=== PATIENT | female | born 1975 | race Caucasian/White ===

== ENCOUNTER 2017-01-11 08:28 | Observation (INO) ==
[2017-01-11] MEDS ORDERED: Ketorolac 30 MG/ML VIAL IVP ONE (09:26)
[2017-01-11 09:36] LABS: Bilirubin,Urine Negative (Negative); Blood,Urine Moderate (Negative); Clarity,Urine Cloudy (Clear); Color,Urine Yellow (Yellow); Glucose,Urine (UA) Normal (Normal); Ketones,Urine Negative (Negative); Leukocyte Esterase,Urine Large (Negative); Nitrite,Urine Positive (Negative); PH,Urine 7.5 pH Units (5.0-8.0); Protein,Urine 100 mg/dL (Neg-Trace); Urobilinogen,Urine Normal (Normal)
[2017-01-11 09:38] LABS: Bacteria,Urine Many per hpf (None-Few); Hyaline Casts,Urine None Seen per lpf (None-Few); RBC,Urine 30-50 per hpf (0-3); Squamous Epithelial Cell,Urine Many per lpf (None-Few); WBC,Urine TNTC per hpf (0-3)
[2017-01-11 09:42] LABS: Amphetamine Screen,Urine Negative ng/mL (Cutoff=1000); Barbiturate Screen,Urine Negative ng/mL (Cutoff=200); Benzodiazepines Screen,Urine Negative ng/mL (Cutoff=200); Cannabinoid Screen,Urine Negative ng/mL (Cutoff = 50); Cocaine Screen,Urine Negative ng/mL (Cutoff= 300); Opiate Screen,Urine Negative ng/mL (Cutoff=300); Phencyclidine Screen,Urine Negative ng/mL (Cutoff=25)
[2017-01-11 09:46] LABS: Basophils # 0.1 K/mcL (0.0-0.2); Basophils % 0.4 %; Eosinophils # 0.2 K/mcL (0.0-0.6); Eosinophils % 1.8 %; Hematocrit 38.7 % (35.3-44.9); Immature Granulocytes % 0.4 % (0-4); Lymphocytes # 1.5 K/mcL (0.6-4.6); Lymphocytes % 11.1 %; Mean Corpuscular HGB Conc 33.6 g/dL (31.6-35.5); Mean Corpuscular Hemoglobin 31.6 pg (28.0-33.3); Mean Corpuscular Volume 94.2 fL (83.0-100.0); Mean Platelet Volume 10.1 fL (9.4-12.4); Monocytes # 1.1 K/mcL (0.0-1.3); Monocytes % 7.7 %; Neutrophils # 10.7 K/mcL (1.6-8.9); Platelet Count 314 K/mcL (140-400); Red Blood Count 4.11 M/mcL (3.82-4.97); Red Cell Distribution Width 11.9 % (11.5-14.5); Segmented Neutrophils % 78.6 %
[2017-01-11 09:58] LABS: Prothrombin Time 10.4 Seconds (9.4-12.1)
[2017-01-11 10:00] LABS: Activated Partial Thrombo Time 27.7 Seconds (26.0-36.0)
[2017-01-11 10:02] LABS: Alanine Aminotransferase 12 Units/L (0-55); Albumin 3.3 g/dL (3.5-5.0); Albumin/Globulin Ratio 1.1 (1.1-2.2); Alkaline Phosphatase 45 Units/L (38-126); Amylase 37 Units/L (25-125); Aspartate Amino Transferase 13 Units/L (5-34); BUN/Creatinine Ratio 14 (6-26); Bilirubin,Direct 0.2 mg/dL (0.0-0.5); Bilirubin,Indirect 0.3 mg/dL (0.0-1.2); Bilirubin,Total 0.5 mg/dL (0.2-1.2); Blood Urea Nitrogen 9 mg/dL (7-20); Carbon Dioxide 24 mEq/L (19-29); Chloride 109 mEq/L (98-109); Globulin 3.1 g/dL (2.4-3.5); Glucose 100 mg/dL (70-99); Lipase 17 Units/L (8-78); Osmolality,Calculated 283 (280-300); Potassium 3.4 mEq/L (3.5-4.5); Sodium 137 mEq/L (136-145); Total Protein 6.4 g/dL (6.0-8.3); eGFR For African Americans > 60 (> 60); eGFR For Non-African Americans > 60 (> 60)
[2017-01-11] MEDS ORDERED: 0.9 % Sodium Chloride 1,000 ML IVC ONE ×2 (11:16→12:38)
[2017-01-11] MEDS ORDERED: Piperacillin/Tazobactam 3.375 GM in D5% in Water (Mini-Bag+) 100 ML IVPB ONE (12:39)
[2017-01-11] MEDS ORDERED: Ondansetron 4 MG/2 ML VIAL IVP ONE (12:40)
[2017-01-11] MEDS ORDERED: *HR* Morphine 2 MG/ML SYRINGE IVP ONE (12:40)
--- NOTE | 2017-01-11 13:19 | Emergency Department Note ---
Disposition Clinical Impression: Renal colic, Pyelonephritis, Kidney stone Disposition: Admitted As Inpatient Condition: Fair Referrals: Lorin Collier CNP [Primary Care Provider] - Forms: ED Satisfaction Letter Time of Disposition: 13:21 General Adult HPI - General Chief complaint: ED Back Pain/Injury Stated complaint: Back Pain vs. Flank Pain Time Seen by Provider: 01/11/17 08:43 Source: patient Mode of arrival: private vehicle Limitations: no limitations Nursing Notes Reviewed: Yes Vital Signs Reviewed: Yes - History of Present Illness HPI Narrative: A very pleasant 42-year-old female patient presents to the emergency department with complaint of right flank/back pain. Patient states that she has had similar episodes in the past where she had been diagnosed with kidney stones. She does describe some difficulty with urination. She denies any fever, chills , nausea or vomiting. She denies any recent trauma. She denies any chest pain or shortness of breath. She denies any dizziness or lightheadedness. Onset (ago): hour(s) Location: back, right Pain Severity: moderate, severe Pain Scale: 6 Quality: sharp Consistency: intermittent, Worsening Improves with: nothing Worsens with: nothing Associated symptoms: Reports: denies other symptoms Treatments Prior to Arrival: none - Related Data Home Medications Medication Instructions Recorded Confirmed Escitalopram [Lexapro] 20 mg PO DAILY 01/11/17 01/11/17 Propranolol HCl 40 mg PO DAILY 01/11/17 01/11/17 Rizatriptan Benzoate [Maxalt] 10 mg PO AD PRN 01/11/17 01/11/17 Allergies Allergy/AdvReac Type Severity Reaction Status Date / Time codeine AdvReac Vomiting Verified 01/11/17 08:31 All systems ED: reviewed and negative except as stated. Constitutional: Denies: fever, chills Cardiovascular: Denies: chest pain Respiratory: Denies: dyspnea Gastrointestinal: Reports: abdominal pain. Denies: nausea, vomiting Genitourinary: Reports: dysuria Musculoskeletal: Denies: back pain, neck pain Integumentary: Denies: rash, abrasion, lesions Neurological: Denies: headache Psychiatric: Denies: anxiety, depression, suicidal thoughts, homicidal thoughts Past Medical History - Past Medical History Attestation: Yes The following information was validated with the patient. Source: patient, nursing notes reviewed Medical history: Reports: kidney stones, migraine Psychiatric history: Reports: anxiety EXTERMINATOR TERMITE history: Reports: no EXTERMINATOR TERMITE history - Social History Smoking Status: Never smoker Smokeless Tobacco Status: No Alcohol use: Reports: occasionally Drug use: Reports: none Physical Exam - General Limitations: no limitations General appearance: alert, in no apparent distress - Head Head exam: atraumatic, normocephalic, normal inspection - Eye Eye exam: Present: normal appearance, PERRL - Neck Neck exam: Present: normal inspection, full ROM, trachea midline - Chest Chest inspection: Present: normal inspection, symmetric chest wall rise - Respiratory Respiratory exam: Present: normal lung sounds bilaterally. Absent: respiratory distress - Cardiovascular Cardiovascular exam: Present: regular rate, normal rhythm, normal heart sounds - Abdominal Exam Abdominal exam: Present: soft, Non-Tender, normal bowel sounds. Absent: distention, guarding, rebound, rigidity - Extremities Exam Extremities exam: Present: normal inspection, full ROM - Expanded Lower Extremity Exam Gait: observed and normal - Back Exam Back exam: Present: CVA tenderness (R). Absent: vertebral tenderness - Neurological Exam Neurological exam: Present: alert, oriented X3 Course - Consultations Consultation #1: I discussed this patient's case with Dr. Trevizo, he requested the patient be admitted for probable ureteral stent placement and antibiotic therapy. I discussed this with the patient at the bedside and she verbalizes understanding and agreement with plan of care for admission to the hospital. Time: 12:40 Vital Signs Temperature 98.7 F 01/11/17 08:31 Pulse Rate 74 01/11/17 08:31 Respiratory Rate 20 01/11/17 08:31 Blood Pressure 125/88 01/11/17 08:31 O2 Sat by Pulse Oximetry 98 01/11/17 08:31 Temperature 98.7 F 01/11/17 08:31 Pulse Rate 71 01/11/17 13:06 Respiratory Rate 16 01/11/17 13:06 Blood Pressure 108/80 01/11/17 13:06 O2 Sat by Pulse Oximetry 100 01/11/17 13:06 Oxygen Delivery Oxygen Delivery Room Air Medical Decision Making - Lab Data Result diagrams: 01/11/17 09:04 01/11/17 09:04 Lab Results 01/11/17 01/11/17 01/11/17 Range/Units 08:40 08:40 08:40 WBC (4.3-11.1) K/mcL RBC (3.82-4.97) M/mcL Hgb (11.5-15.4) g/dL Hct (35.3-44.9) % MCV (83.0-100.0) fL MCH (28.0-33.3) pg MCHC (31.6-35.5) g/dL RDW (11.5-14.5) % Plt Count (140-400) K/mcL MPV (9.4-12.4) fL Immature Gran % (0-4) % Seg Neutrophils % % Lymphocytes % % Monocytes % % Eosinophils % % Basophils % % Neutrophils # (1.6-8.9) K/mcL Lymphocytes # (0.6-4.6) K/mcL Monocytes # (0.0-1.3) K/mcL Eosinophils # (0.0-0.6) K/mcL Basophils # (0.0-0.2) K/mcL PT (9.4-12.1) Seconds INR APTT (26.0-36.0) Seconds Sodium (136-145) mEq/L Potassium (3.5-4.5) mEq/L Chloride (98-109) mEq/L Carbon Dioxide (19-29) mEq/L BUN (7-20) mg/dL Creatinine (0.57-1.11) mg/dL Est GFR ( Amer) (> 60) Est GFR (Non-Af Amer) (> 60) BUN/Creatinine Ratio (6-26) Glucose (70-99) mg/dL Calculated Osmolality (280-300) Lactic Acid (0.5-2.2) mmol/L Calcium (8.6-10.8) mg/dL Total Bilirubin (0.2-1.2) mg/dL Direct Bilirubin (0.0-0.5) mg/dL Indirect Bilirubin (0.0-1.2) mg/dL AST (5-34) Units/L ALT (0-55) Units/L Alkaline Phosphatase (38-126) Units/L Serum Total Protein (6.0-8.3) g/dL Albumin (3.5-5.0) g/dL Globulin (2.4-3.5) g/dL Albumin/Globulin Ratio (1.1-2.2) Amylase (25-125) Units/L Lipase (8-78) Units/L Urine Color Yellow (Yellow) Urine Clarity Cloudy A (Clear) Urine pH 7.5 (5.0-8.0) pH Units Ur Specific Grundy 1.020 (1.010-1.025) Urine Protein 100 H (Neg-Trace) mg/dL Urine Glucose (UA) Normal (Normal) mg/dL Urine Ketones Negative (Negative) mg/dL Urine Blood Moderate H (Negative) Urine Nitrite Positive A (Negative) Urine Bilirubin Negative (Negative) Urine Urobilinogen Normal (Normal) mg/dL Ur Leukocyte Esterase Large H (Negative) Urine Microscopic RBC 30-50 H (0-3) per hpf Urine Microscopic WBC TNTC H (0-3) per hpf Ur Squamous Epith Cells Many H (None-Few) per lpf Urine Bacteria Many H (None-Few) per hpf Hyaline Casts None Seen (None-Few) per lpf Ur Culture Indicated? YES A (NO) Urine Test Negative (Negative) Urine Opiates Screen Negative (Ezucsh=777) ng/mL Ur Barbiturates Screen Negative (Jzxqmp=123) ng/mL Ur Phencyclidine Scrn Negative (Cutoff=25) ng/mL Ur Amphetamines Screen Negative (Igvszq=3500) ng/mL U Benzodiazepines Scrn Negative (Wvcklg=289) ng/mL Urine Cocaine Screen Negative (Cutoff= 300) ng/mL U Marijuana (THC) Screen Negative (Cutoff = 50) ng/mL 01/11/17 01/11/17 01/11/17 Range/Units 09:04 09:04 09:04 WBC 13.6 H (4.3-11.1) K/mcL RBC 4.11 (3.82-4.97) M/mcL Hgb 13.0 (11.5-15.4) g/dL Hct 38.7 (35.3-44.9) % MCV 94.2 (83.0-100.0) fL MCH 31.6 (28.0-33.3) pg MCHC 33.6 (31.6-35.5) g/dL RDW 11.9 (11.5-14.5) % Plt Count 314 (140-400) K/mcL MPV 10.1 (9.4-12.4) fL Immature Gran % 0.4 (0-4) % Seg Neutrophils % 78.6 % Lymphocytes % 11.1 % Monocytes % 7.7 % Eosinophils % 1.8 % Basophils % 0.4 % Neutrophils # 10.7 H (1.6-8.9) K/mcL Lymphocytes # 1.5 (0.6-4.6) K/mcL Monocytes # 1.1 (0.0-1.3) K/mcL Eosinophils # 0.2 (0.0-0.6) K/mcL Basophils # 0.1 (0.0-0.2) K/mcL PT 10.4 (9.4-12.1) Seconds INR 1.0 APTT 27.7 (26.0-36.0) Seconds Sodium 137 (136-145) mEq/L Potassium 3.4 L (3.5-4.5) mEq/L Chloride 109 (98-109) mEq/L Carbon Dioxide 24 (19-29) mEq/L BUN 9 (7-20) mg/dL Creatinine 0.64 (0.57-1.11) mg/dL Est GFR ( Amer) > 60 (> 60) Est GFR (Non-Af Amer) > 60 (> 60) BUN/Creatinine Ratio 14 (6-26) Glucose 100 H (70-99) mg/dL Calculated Osmolality 283 (280-300) Lactic Acid (0.5-2.2) mmol/L Calcium 8.0 L (8.6-10.8) mg/dL Total Bilirubin 0.5 (0.2-1.2) mg/dL Direct Bilirubin 0.2 (0.0-0.5) mg/dL Indirect Bilirubin 0.3 (0.0-1.2) mg/dL AST 13 (5-34) Units/L ALT 12 (0-55) Units/L Alkaline Phosphatase 45 (38-126) Units/L Serum Total Protein 6.4 (6.0-8.3) g/dL Albumin 3.3 L (3.5-5.0) g/dL Globulin 3.1 (2.4-3.5) g/dL Albumin/Globulin Ratio 1.1 (1.1-2.2) Amylase 37 (25-125) Units/L Lipase 17 (8-78) Units/L Urine Color (Yellow) Urine Clarity (Clear) Urine pH (5.0-8.0) pH Units Ur Specific Grundy (1.010-1.025) Urine Protein (Neg-Trace) mg/dL Urine Glucose (UA) (Normal) mg/dL Urine Ketones (Negative) mg/dL Urine Blood (Negative) Urine Nitrite (Negative) Urine Bilirubin (Negative) Urine Urobilinogen (Normal) mg/dL Ur Leukocyte Esterase (Negative) Urine Microscopic RBC (0-3) per hpf Urine Microscopic WBC (0-3) per hpf Ur Squamous Epith Cells (None-Few) per lpf Urine Bacteria (None-Few) per hpf Hyaline Casts (None-Few) per lpf Ur Culture Indicated? (NO) Urine Test (Negative) Urine Opiates Screen (Cszfmh=424) ng/mL Ur Barbiturates Screen (Rbvyqt=679) ng/mL Ur Phencyclidine Scrn (Cutoff=25) ng/mL Ur Amphetamines Screen (Lnewhf=4600) ng/mL U Benzodiazepines Scrn (Bbizey=461) ng/mL Urine Cocaine Screen (Cutoff= 300) ng/mL U Marijuana (THC) Screen (Cutoff = 50) ng/mL 01/11/17 Range/Units 10:15 WBC (4.3-11.1) K/mcL RBC (3.82-4.97) M/mcL Hgb (11.5-15.4) g/dL Hct (35.3-44.9) % MCV (83.0-100.0) fL MCH (28.0-33.3) pg MCHC (31.6-35.5) g/dL RDW (11.5-14.5) % Plt Count (140-400) K/mcL MPV (9.4-12.4) fL Immature Gran % (0-4) % Seg Neutrophils % % Lymphocytes % % Monocytes % % Eosinophils % % Basophils % % Neutrophils # (1.6-8.9) K/mcL Lymphocytes # (0.6-4.6) K/mcL Monocytes # (0.0-1.3) K/mcL Eosinophils # (0.0-0.6) K/mcL Basophils # (0.0-0.2) K/mcL PT (9.4-12.1) Seconds INR APTT (26.0-36.0) Seconds Sodium (136-145) mEq/L Potassium (3.5-4.5) mEq/L Chloride (98-109) mEq/L Carbon Dioxide (19-29) mEq/L BUN (7-20) mg/dL Creatinine (0.57-1.11) mg/dL Est GFR ( Amer) (> 60) Est GFR (Non-Af Amer) (> 60) BUN/Creatinine Ratio (6-26) Glucose (70-99) mg/dL Calculated Osmolality (280-300) Lactic Acid 1.6 (0.5-2.2) mmol/L Calcium (8.6-10.8) mg/dL Total Bilirubin (0.2-1.2) mg/dL Direct Bilirubin (0.0-0.5) mg/dL Indirect Bilirubin (0.0-1.2) mg/dL AST (5-34) Units/L ALT (0-55) Units/L Alkaline Phosphatase (38-126) Units/L Serum Total Protein (6.0-8.3) g/dL Albumin (3.5-5.0) g/dL Globulin (2.4-3.5) g/dL Albumin/Globulin Ratio (1.1-2.2) Amylase (25-125) Units/L Lipase (8-78) Units/L Urine Color (Yellow) Urine Clarity (Clear) Urine pH (5.0-8.0) pH Units Ur Specific Grundy (1.010-1.025) Urine Protein (Neg-Trace) mg/dL Urine Glucose (UA) (Normal) mg/dL Urine Ketones (Negative) mg/dL Urine Blood (Negative) Urine Nitrite (Negative) Urine Bilirubin (Negative) Urine Urobilinogen (Normal) mg/dL Ur Leukocyte Esterase (Negative) Urine Microscopic RBC (0-3) per hpf Urine Microscopic WBC (0-3) per hpf Ur Squamous Epith Cells (None-Few) per lpf Urine Bacteria (None-Few) per hpf Hyaline Casts (None-Few) per lpf Ur Culture Indicated? (NO) Urine Test (Negative) Urine Opiates Screen (Tywins=149) ng/mL Ur Barbiturates Screen (Qnnjxd=012) ng/mL Ur Phencyclidine Scrn (Cutoff=25) ng/mL Ur Amphetamines Screen (Ixsqfl=1220) ng/mL U Benzodiazepines Scrn (Ixkjie=639) ng/mL Urine Cocaine Screen (Cutoff= 300) ng/mL U Marijuana (THC) Screen (Cutoff = 50) ng/mL
[2017-01-11] MEDS ORDERED: Ketorolac 30 MG/ML VIAL IVP PRN (13:44)
[2017-01-11] MEDS ORDERED: Acetaminophen 325 MG TABLET PO PRN ×2 (13:44→18:25)
[2017-01-11] MEDS ORDERED: Naloxone 0.4 MG/ML INJ IVP PRN ×2 (13:44→18:25)
[2017-01-11] MEDS ORDERED: *HR* HYDROmorphone (PF) 1 MG/ML SYRINGE IVP PRN (13:44)
[2017-01-11] MEDS ORDERED: Ondansetron 4 MG/2 ML VIAL IVP PRN ×2 (13:44→17:49)
[2017-01-11] MEDS ORDERED: 0.9 % Sodium Chloride 1,000 ML IVC SCH (13:45)
--- NOTE | 2017-01-11 15:13 | Urology History & Physical ---
Date of Encounter: 01/11/17 Time of Encounter: 15:10 Assessment and Plan (1) Ureteral calculus, right Current Visit: Yes Status: Acute 42-year-old woman with a history of a right mid ureteral stone and concern for urinary tract infection. She has been admitted for pain control and antibiotic. I recommend proceeding with a cystoscopy and right ureteral stent placement. She was informed of the risks of the surgery which include but are not limited to bleeding, infection, injury to other structures, need for further procedures , stent irritation, need for nephrostomy tube, need for open repair, and risk of anesthesia. She is willing to proceed. (2) Pyelonephritis Current Visit: Yes Status: Acute She has an elevated white count and pyuria. We will treat her with IV antibiotics until her culture returns. History of Present Illness Chief complaint: Right flank pain HPI: Ms. Hines is a 42 year old female who presents with a one-week history of right flank pain. The pain is located in the right flank and radiates to the right lower quadrant. It became steadily worse over the last 2 days. Last night she noted the pain mostly in the right lower quadrant. It was sharp. It was very severe. Nothing seemed to improve the pain. She noted some fevers and chills. She came to the emergency department. A CT scan was obtained which showed an obstructing right mid ureteral stone as well as 2 stones within the right kidney. She has been admitted for an about X and treatment. She reports having a stone history. Approximately 9 years ago she had to be stented while she was . Past Med Surg Social Fam HX - Past Medical History Medical history: kidney stones, migraine Psychiatric history: anxiety - Past Surgical History Surgical History: appendectomy - Social History Smoking Status: Never smoker Smokeless Tobacco Status: No Alcohol use: occasionally Drug use: none - Family History Mother Age: 67 Living Status: Still Living Hx Family Cardiac Disorders: Yes (Htn) Father Age: 64 Living Status: Still Living Hx Family Respiratory Disorders: Yes (COPD) Hx Family GI Disorders: Yes (liver sx) Hx Family Psychosocial Disorders: Yes (bipolar, alcoholism, depression, anxiety) Medications and Allergies Escitalopram [Lexapro] 20 mg PO DAILY 01/11/17 [History] Propranolol HCl 40 mg PO DAILY 01/11/17 [History] Rizatriptan Benzoate [Maxalt] 10 mg PO AD PRN 01/11/17 [History] 3 Allergy/AdvReac Type Severity Reaction Status Date / Time codeine AdvReac Vomiting Verified 01/11/17 08:31 Review of Systems - Constitutional chills, fever(s) - EENT Nose, mouth and throat: no dizziness - Cardiovascular no chest pain - Respiratory no dyspnea - Gastrointestinal nausea, no vomiting - Genitourinary Genitourinary: flank pain, no hematuria - Musculoskeletal no back pain - Integumentary no erythema, no rash - Neurological no weakness - Psychiatric no suicidal ideation - Hematologic/Lymphatic no easy bleeding - Allergic/Immunologic no wheezing Exam Initial Vital Signs Temp Pulse Resp BP Pulse Ox 98.7 F 74 20 125/88 98 01/11/17 08:31 01/11/17 08:31 01/11/17 08:31 01/11/17 08:31 01/11/17 08:31 - General physical appearance Present: well developed, well nourished, no distress - Eyes Absent: icteric - ENT Present: normal nares - Neck Present: trachea midline - Respiratory Present: normal respiratory effort - Cardiovascular Cardiovascular exam IM: RRR - Abdomen Abdomen: Present: soft - Integumentary Present: no rash Urology Results - Labs 01/11/17 09:04 01/11/17 09:04 Abnormal lab results WBC 13.6 K/mcL (4.3-11.1) H 01/11/17 09:04 Neutrophils # 10.7 K/mcL (1.6-8.9) H 01/11/17 09:04 Potassium 3.4 mEq/L (3.5-4.5) L 01/11/17 09:04 Glucose 100 mg/dL (70-99) H 01/11/17 09:04 Calcium 8.0 mg/dL (8.6-10.8) L 01/11/17 09:04 Albumin 3.3 g/dL (3.5-5.0) L 01/11/17 09:04 Urine Clarity Cloudy (Clear) A 01/11/17 08:40 Urine Protein 100 mg/dL (Neg-Trace) H 01/11/17 08:40 Urine Blood Moderate (Negative) H 01/11/17 08:40 Urine Nitrite Positive (Negative) A 01/11/17 08:40 Ur Leukocyte Esterase Large (Negative) H 01/11/17 08:40 Urine Microscopic RBC 30-50 per hpf (0-3) H 01/11/17 08:40 Urine Microscopic WBC TNTC per hpf (0-3) H 01/11/17 08:40 Ur Squamous Epith Cells Many per lpf (None-Few) H 01/11/17 08:40 Urine Bacteria Many per hpf (None-Few) H 01/11/17 08:40 Ur Culture Indicated? YES (NO) A 01/11/17 08:40 All other labs normal. - Imaging CT scan - abdomen: report reviewed, image reviewed CT scan - pelvis: report reviewed, image reviewed
--- NOTE | 2017-01-11 17:11 | Anesthesia Evaluation PreOp ---
Date of Encounter: 01/11/17 Time of Encounter: 17:09 - Past History Planned Operation: Cystoscopy, Right ureteral stent Insertion Cardiac History: Denies any Significant Hx Pulmonary History: Denies Any Significant HX KEY CARRIER History: Other (Anxiety) Other Medical History: Renal (Sones) Anesthesia History: No Prior Anesthetic Complications, Past Anesthesia (appy) : No Test: Negative (01/11/17) Alcohol Use: occasionally Drug use: none Medications and Allergies Escitalopram [Lexapro] 20 mg PO DAILY 01/11/17 [History] Propranolol HCl 40 mg PO DAILY 01/11/17 [History] Rizatriptan Benzoate [Maxalt] 10 mg PO AD PRN 01/11/17 [History] 3 Allergy/AdvReac Type Severity Reaction Status Date / Time codeine AdvReac Vomiting Verified 01/11/17 08:31 - Meds/Allergy Pre-op Review Medications Reviewed: Yes Allergies Reviewed: Yes Beta Blockers on Current Med List: No Anesthesia Results - Labs 01/11/17 09:04 01/11/17 09:04 - Imaging EKG: image reviewed (SINUS RHYTHM WITH MARKED SINUS ARRHYTHMIA) Anesthesia Exam O2 Sat Height 1.63 m Height 1.63 m Weight 77 kg Weight 73.21 kg O2 Sat by Pulse Oximetry 99 O2 Sat by Pulse Oximetry 100 O2 Sat by Pulse Oximetry 98 O2 Sat by Pulse Oximetry 100 O2 Sat by Pulse Oximetry 99 O2 Sat by Pulse Oximetry 98 Vital Signs Temp Pulse Resp BP Pulse Ox 98.7 F 74 20 125/88 98 01/11/17 08:31 01/11/17 08:31 01/11/17 08:31 01/11/17 08:31 01/11/17 08:31 Vital Signs/O2 Sat, Most Current Temp Pulse Resp BP Pulse Ox 98.9 F 59 16 107/71 99 01/11/17 14:47 01/11/17 14:47 01/11/17 14:47 01/11/17 14:47 01/11/17 14:47 Height: 5'4'' Weight: 169# NPO (# of Hours): > 8 hrs Pain Scale: 0 Pain Scale Used: Numeric (1 - 10) - HEENT Pupil (Motor): Pupils equal, EOMI Mallampati: I Teeth: Normal Oral Opening: Greater than 3 - KEY CARRIER LOC: Oriented KEY CARRIER Motor: Normal RUE, Normal LUE, Normal RLE, Normal LLE, Normal Face KEY CARRIER Sensory: Normal: RUE, LUE, RLE, LLE, Face - Cardiac Rhythm: Regular Murmur: None JVD: No Carotid Bruit: No - Pulmonary Breath Sounds: bilateral Clear Respiratory Effort: Symmetrical Anesthesia Assess/Plan ASA Score: 2 Modified Reading Scale for Level of Consciousness: Cooperative, oriented, and tranquil Anesthetic Plan: General Autologous Blood: Yes Monitoring Plan: Standard Monitors Recovery Plan: PACU
[2017-01-11] MEDS ORDERED: *HR* Promethazine 25 MG/ML VIAL IVP PRN (17:49)
--- NOTE | 2017-01-11 17:55 | Operative Note ---
Date of procedure: 01/11/17 Pre-op diagnosis: Right ureteral stone Post-op diagnosis: same Procedure: Cystoscopy, right ureteral stent placement. Implants: 4.8 [place]uran by 26 cm double-J stent. Complications: None. Anesthesia: KYLE Surgeon: Jose Trevizo Estimated blood loss (cc): 0 Specimen: none Condition: stable Disposition: PACU Procedure in Detail: Indications: Yanna is a 42-year-old woman who has a history of nephrolithiasis. She had a CT which showed a right mid ureteral stone as well as right renal stones. She has a urinary tract infection. She elected to undergo a cystoscopy and right ureteral stent placement. She was aware of the risks of the procedure including but not limited to bleeding, infection, injury to other structures, need for further procedures, stent irritation, need for nephrostomy tube, need for open repair, risks otherwise unforeseen, and the risk of anesthesia. She is willing to proceed. Procedure in Detail: After informed consent was obtained the patient was brought back to the operating room and placed in supine position. A time out was performed. General anesthesia was administered. She was then placed in the lithotomy position. She was prepped and draped in the usual sterile fashion. Cystoscopy was performed. The anterior urethra was normal. There was no evidence of bladder tumors. The wire was able to move past the stone and brought into the kidney under fluoroscopic guidance. A 4.8 [place]uran by 26cm JJ stent was then placed. The dangle strings were removed. The patient was then awakened from general anesthesia and brought to recovery room in good condition. All sponge, needle, and instrument counts were correct.
[2017-01-11] MEDS: *HR* HYDROmorphone (PF) 1 MG/ML SYRINGE IVP PRN ×3 (18:09→23:54)
[2017-01-11] MEDS ORDERED: (Rizatriptan Benzoate [Maxalt] 10 MG) PO PRN (18:25)
--- NOTE | 2017-01-11 18:32 | Anesthesia Evaluation Post Op ---
Date of Encounter: 01/11/17 Time of Encounter: 18:32 - Vital Signs Vital Signs: Vital Signs/O2 Sat, Most Current Temp Pulse Resp BP Pulse Ox 97.2 F L 68 16 109/83 95 01/11/17 18:25 01/11/17 18:25 01/11/17 18:25 01/11/17 18:25 01/11/17 18:25 - Lungs Lungs: Clear Ascult./Percussion - Airway Airway: Non-obstructed - Cardiovascular Regular Rate - Mental Status Mental Status: Alert & Oriented, Answers Appropriately - Pain Pain Scale: 0 Pain Scale used: Numeric (1 - 10) - Nausea Vomiting Nausea Vomiting: Not Present - Hydration Hydration: Tolerates oral liquids, Has not voided - Discharge PostOp Status: Transfer Patient to floor
[2017-01-11] MEDS ORDERED: *HR* Propofol 200 MG/20 ML VIAL IVP ONE (18:50)
[2017-01-11] MEDS ORDERED: Lidocaine -MPF 2% 2 ML VIAL ONE (18:50)
[2017-01-11] MEDS ORDERED: Dexamethasone 4 MG/ML VIAL ONE (18:50)
[2017-01-11] MEDS ORDERED: *HR* FentaNYL (PF) 100 MCG/2 ML VIAL ONE (18:50)
[2017-01-11] MEDS ORDERED: *HR* Midazolam HCl 2 MG/2 ML VIAL ONE ×2 (18:50)
[2017-01-11] MEDS ORDERED: Ondansetron 4 MG/2 ML VIAL ONE (18:50)
[2017-01-11] MEDS: Ketorolac 30 MG/ML VIAL IVP PRN (19:01)
[2017-01-11] MEDS ORDERED: Piperacillin/Tazobactam 3.375 GM in D5% in Water (Mini-Bag+) 100 ML IVPB SCH (22:00)
[2017-01-12] MEDS: Piperacillin/Tazobactam 3.375 GM in D5% in Water (Mini-Bag+) 100 ML IVPB SCH ×3 (00:06→17:16)
[2017-01-12] MEDS: 0.9 % Sodium Chloride 1,000 ML IVC SCH ×2 (00:14→04:13)
[2017-01-12] MEDS: *HR* HYDROmorphone (PF) 1 MG/ML SYRINGE IVP PRN (04:11)
[2017-01-12] MEDS: Ondansetron 4 MG/2 ML VIAL IVP PRN ×3 (04:25→23:34)
--- NOTE | 2017-01-12 06:59 | Urology Progress Note ---
Date of Encounter: 01/12/17 Time of Encounter: 06:57 - Assessment and Plan (1) Ureteral calculus, right Current Visit: Yes Status: Acute Assessment and plan: s/p stent. 1. Will transition to PO pain medications. 2. Will anticipate d/c home later today if pain is adequately controlled. (2) Pyelonephritis Current Visit: Yes Status: Acute Assessment and plan: E. coli growing out of culture. Continue Zosyn while in the hospital. Will transition to PO medications once discharged. Progress Note Narrative: POD #1 s/p right ureteral stent placement. No fevers overnight. She had some pain associated with the stent. It is controlled with dilaudid. Objective Initial Vital Signs Temp Pulse Resp BP Pulse Ox 98.7 F 74 20 125/88 98 01/11/17 08:31 01/11/17 08:31 01/11/17 08:31 01/11/17 08:31 01/11/17 08:31 - General physical appearance Present: well developed, well nourished, no distress - Respiratory Present: normal respiratory effort - Abdomen Present: soft - Labs 01/11/17 09:04 01/11/17 09:04 Consult Discharge Plan - Plan Referrals: Lorin Collier, LOCKER ROOM CLERK [Primary Care Provider] -
[2017-01-12] MEDS ORDERED: *HR* Belladonna Alkaloids/Opium 30 MG RECTAL SUPPOSITORY RC ONE (07:00)
--- NOTE | 2017-01-12 07:03 | Discharge Summary ---
Date of Encounter: 01/13/17 Time of Encounter: 07:03 - Discharge Diagnosis (1) Ureteral calculus, right Priority: Primary Status: Acute (2) Pyelonephritis Priority: Secondary Status: Acute - Discharge Medications Prescriptions: OxyCODONE/APAP 5/325 [Percocet 5/325 MG] 2 each PO Q4HR PRN #25 tab PRN Reason: Pain Cefdinir [Omnicef] 300 mg PO BID #20 capsule Docusate Sodium [Colace] 100 mg PO BID #60 capsule Ketorolac [Toradol] 10 mg PO Q6H PRN #20 tablet PRN Reason: Mild Pain Phenazopyridine HCl [Pyridium] 200 mg PO TIDAC #12 tab Home Medications: Escitalopram [Lexapro] 20 mg PO DAILY 01/11/17 [History] Propranolol HCl 40 mg PO DAILY 01/11/17 [History] Rizatriptan Benzoate [Maxalt] 10 mg PO AD PRN 01/11/17 [History] Cefdinir [Omnicef] 300 mg PO BID #20 capsule 01/12/17 [Rx] Docusate Sodium [Colace] 100 mg PO BID #60 capsule 01/12/17 [Rx] OxyCODONE/APAP 5/325 [Percocet 5/325 MG] 2 each PO Q4HR PRN #25 tab 01/12/17 [Rx ] Phenazopyridine HCl [Pyridium] 200 mg PO TIDAC #12 tab 01/12/17 [Rx] Ketorolac [Toradol] 10 mg PO Q6H PRN #20 tablet 01/13/17 [Rx] Allergies/Adverse Reactions: 3 Allergy/AdvReac Type Severity Reaction Status Date / Time codeine AdvReac Vomiting Verified 01/11/17 08:31 - Impressions ITS Impressions Fluoroscopy 01/11/17 17:32 IMPRESSION: Intraprocedural fluoroscopic spot images as above. See separate procedure report for more information. D/ / 01/11/2017 18:14:36 Oscar Lepe MD / [facility] Interpreting Provider: Oscar Lepe MD X-Ray 01/11/17 17:32 IMPRESSION: Intraprocedural fluoroscopic spot images as above. See separate procedure report for more information. D/ / 01/11/2017 18:14:36 Oscar Lepe MD / [facility] Interpreting Provider: Oscar Lepe MD Date of admission: 01/11/17 12:55 Primary care physician: Lorin Collier CNP Discharging clinician: Jose Trevizo Anticipated date of discharge: 01/12/17 - Patient Status Disposition: Home, Self-Care Condition: Fair Overall status at discharge: patient is progressing back to baseline - Discharge Instructions Follow Up With: Jose Trevizo MD [Partnered Physician] - (Dr. Trevizo's office will arrange for surgery.) Forms: ED Satisfaction Letter Additional Instructions: 1. Dr. Trevizo's office will arrange for surgery. 2. She should expect to feel flank pain with voiding. 3. The patient should call for any fevers, chills, nausea, emesis, or uncontrolled pain. 4. Please provide a work excuse if necessary for up to 1 week off. - Diet and Activity Activity: increase activity as tolerated Diet: advance to your usual diet - Hospital Course Hospital course: Ms. Hines is a 42 year old female with a history of right lower quadrant pain. She was admitted to the hospital. A CT scan showed an obstructing right ureteral stone. On January 11, 2017 she underwent a cystoscopy and right ureteral stent placement. Her urine was concerning for infection. Escherichia coli grew out in the culture. On postoperative day #1 her pain was controlled. She was transitioned to oral medications. She still had some pain throughout post operative day #1 and spent another night in the hospital. On POD #2 she was feeling much better and was discharged home. - Time Spent with Patient Total time spent providing and/or coordinating discharge services: Less than 30 minutes Exam Initial Vital Signs Temp Pulse Resp BP Pulse Ox 98.7 F 74 20 125/88 98 01/11/17 08:31 01/11/17 08:31 01/11/17 08:31 01/11/17 08:31 01/11/17 08:31 - General physical appearance Present: well developed, well nourished, no distress - Eyes Absent: icteric - ENT Present: normal nares - Neck Present: trachea midline - Respiratory Present: normal respiratory effort - Cardiovascular Cardiovascular exam IM: RRR - Abdomen Abdomen: Present: soft
[2017-01-12] MEDS: *HR* OxyCODONE/APAP 5/325 TABLET PO PRN ×3 (08:25→21:50)
[2017-01-12] MEDS: Ketorolac 30 MG/ML VIAL IVP PRN (10:32)
[2017-01-13] MEDS: Piperacillin/Tazobactam 3.375 GM in D5% in Water (Mini-Bag+) 100 ML IVPB SCH (00:44)
[2017-01-13] MEDS: *HR* OxyCODONE/APAP 5/325 TABLET PO PRN (05:32)
[2017-01-13 06:02] VITALS: BP 116/76
== END 2017-01-13 11:03 | disposition home or self-care (01) ==
LOC: 3BNU 08:28 → EMEROO 08:28 → 3BNU 13:54
PROVIDERS: ADMIT Urology; ATTEND Urology